=== PATIENT | female | born 1985 | race Hispanic/Latino ===

== ENCOUNTER 2022-09-26 07:11 | Emergency (ER) | payer SELFPAY ==
[2022-09-26] MEDS ORDERED: Ondansetron PF 4 MG/2 ML Vial ONE (07:59)
[2022-09-26] MEDS ORDERED: Morphine 4 MG/ML VIAL ONE ×2 (07:59→09:24)
[2022-09-26 08:05] LABS: #Eosinphils 0.3 10x3/uL (0.0-0.5); #Monocytes 0.9 10x3/uL (0.0-1.1); #Neutrophils 7.9 10x3/uL (1.5-8.4); %Basophils 0.4 % (0.0-2.0); %Eosinophils 2.4 % (0.0-6.0); %Lymphocytes 19.3 % (18.0-47.0); %Monocytes 8.2 % (0.0-10.0); %Neutrophils 69.5 % (40.0-75.0); Hemoglobin 12.9 g/dL (12.0-15.5); Mean Corpuscular HGB CONC 33.5 g/dL (32.0-36.0); Mean Corpuscular Hemoglobin 30.4 pg (27.0-33.0); Mean Corpuscular Volume 90.8 fl (81.6-98.3); Mean Platelet Volume 10.7 fl (7.4-10.4); Platelet Count 246 10x3/uL (150-450); RBC Distribution Width 13.1 % (11.5-14.5); Red Blood Cell (RBC) Count 4.24 10x6/uL (3.90-5.03); White Blood Cell (WBC) Count 11.4 10x3/uL (3.5-10.5)
[2022-09-26 08:07] LABS: Bilirubin Neg (Negative); Blood, Urine 250 (Negative); Glucose, Urine (Dipstick) Normal (Negative); Ketone, Urine Negative (Negative); Leukocyte 100 (Negative); Nitrite Negative (Negative); Protein, Urine (Dipstick) 15 mg/dl (Neg-Trace); Specific Gravity, Urine 1.005 (1.005-1.030); Urobilinogen Normal mg/dL (Less than 2)
[2022-09-26 08:10] LABS: Clarity Hazy (Clear)
[2022-09-26 08:13] LABS: Pregnancy Test - Urine (BHCG) Negative (Negative); Pregu Control Background? CLEAR/WHITE (CLR/WHITE); Pregu Control Bar Appear? YES (CONTROL BAR); Specific Gravity 1.005 (1.002-1.036)
[2022-09-26 08:32] LABS: ALT (SGPT) 29 U/L (8-55); AST (SGOT) 23 U/L (5-34); Albumin 4.6 g/dL (3.5-5.0); Alkaline Phosphatase 58 U/L (40-110); Anion Gap 12 mmol/L (10-20); BUN (Urea Nitrogen) 11 mg/dL (7.0-18.7); Bilirubin, Total 0.4 mg/dL (0.2-1.2); Calc. Creatinine Clearance 0 mL/min (70-130); Calcium 9.7 mg/dL (7.8-10.44); Carbon Dioxide 25 mmol/L (22-29); Chloride 107 mmol/L (98-107); Estimated GFR 117; Globulin 3.6 g/dL (2.4-3.5); Glucose 96 mg/dL (70-105); Lipase 38 U/L (8-78); Potassium 3.7 mmol/L (3.5-5.1); Protein, Total 8.2 g/dL (6.0-8.3); Sodium 140 mmol/L (136-145)
[2022-09-26 08:36] LABS: Squamous Epithelial 0-3 HPF (0-3)
[2022-09-26 08:37] LABS: Bacteria/HPF 2+ HPF (None Seen)
[2022-09-26 08:38] LABS: BHCG - Serum Negative (NEGATIVE); Pregs Control Background? CLEAR/WHITE (CLR/WHITE); Pregs Control Bar Appear? YES (CONTROL BAR)
[2022-09-26] MEDS ORDERED: Iopamidol 300 61% 100 ML VIAL FS ONE (08:57)
[2022-09-26] MEDS ORDERED: cefTRIAXone\\ROCEPHIN 2 GM VIAL ONE (09:25)
== END 2022-09-26 10:16 | disposition home or self-care (01) ==
LOC: CSHERS 07:11
DX: N39.0 Urinary tract infection, site not specified (principal); K21.9 Gastro-esophageal reflux disease without esophagitis
CPT/HCPCS: 74177; 80053; 81003; 81015; 81025; 83690; 84703; 85025; 87077; 87086; 87186; 96374; 96375; 96376; J0696; J2270; J2405; Q9967